=== PATIENT | female | born 1955 | race Caucasian/White ===

== ENCOUNTER 2019-08-12 11:52 | Emergency (ER) | payer OTHER ==
[~2019-08-12] VITALS: Ht 175.3 cm; Wt 77.1 kg
[~2019-08-12 11:52] MED LIST: ACETAMINOPHEN-1 EAC1 PO; CIPRO250 M1 PO; NOHOMEMEDICATIONS
[2019-08-12] MEDS ORDERED: NORCO 5-325 TA1 EAC1 PO (12:45)
[2019-08-12] MEDS ORDERED: IBUPROFEN 800800 M1 PO (12:45)
[2019-08-12 13:22] VITALS: BP 139/77
== END 2019-08-12 13:25 | disposition home or self-care (01) ==
LOC: M.ERS 11:52
DX: S52.592A Other fractures of lower end of left radius, initial encounter for closed fracture (principal); S52.612A Displaced fracture of left ulna styloid process, initial encounter for closed fracture; Z88.2 Allergy status to sulfonamides; Z90.89 Acquired absence of other organs; W11.XXXA Fall on and from ladder, initial encounter; Y93.89 Activity, other specified; Y92.89 Other specified places as the place of occurrence of the external cause; Y99.8 Other external cause status

== ENCOUNTER → 2020-02-02 | Outpatient (CLI) | payer OTHER ==
[~2020-02-02] MED LIST changes: +IBUPROFEN 800800 M1 PO; +NORCO 5-325 TA1 EAC1 PO
== END ==
LOC: M.RAD 13:10
PROVIDERS: ATTEND Orthopaedic Surgery
DX: M81.0 Age-related osteoporosis without current pathological fracture (principal); M85.88 Other specified disorders of bone density and structure, other site; Z78.0 Asymptomatic menopausal state; S42.202A Unspecified fracture of upper end of left humerus, initial encounter for closed fracture; S62.102A Fracture of unspecified carpal bone, left wrist, initial encounter for closed fracture; X58.XXXA Exposure to other specified factors, initial encounter; Y93.89 Activity, other specified; Y92.89 Other specified places as the place of occurrence of the external cause; Y99.8 Other external cause status

== ENCOUNTER → 2021-01-21 | Outpatient (CLI) | payer OTHER | LOC: M.RAD 12:36 | PROVIDERS: ATTEND Family Medicine | DX: R05 Cough (principal); J12.82 Pneumonia due to coronavirus disease 2019; J84.10 Pulmonary fibrosis, unspecified ==